=== PATIENT | female | born 1980 | race Caucasian/White ===

== ENCOUNTER → 2020-09-16 12:39 | Outpatient (BNVA) | payer BC, SELFPAY | PROVIDERS: PCP Internal Medicine; Referring Provider Internal Medicine; Visit Provider Physician Assistant | DX: E66.3 Overweight (principal); K90.49 Malabsorption due to intolerance, not elsewhere classified; I10 Essential (primary) hypertension; Z71.3 Dietary counseling and surveillance; Z68.29 Body mass index [BMI] 29.0-29.9, adult; Z98.84 Bariatric surgery status; Z79.899 Other long term (current) drug therapy ==

== ENCOUNTER → 2020-09-26 15:01 | Outpatient (BNVA) | payer BC, SELFPAY | PROVIDERS: PCP Internal Medicine; Visit Provider Surgery | DX: Z76.89 Persons encountering health services in other specified circumstances (principal) ==

== ENCOUNTER → 2020-11-26 15:03 | Outpatient (BNVA) | payer BC, SELFPAY | PROVIDERS: PCP Internal Medicine; Visit Provider Surgery | DX: Z76.89 Persons encountering health services in other specified circumstances (principal) ==

== ENCOUNTER → 2020-12-17 16:12 | Outpatient (BNVA) | payer BC, SELFPAY | PROVIDERS: PCP Internal Medicine; Visit Provider Dietitian, Registered ==

== ENCOUNTER → 2021-02-14 15:40 | Outpatient (BNVA) | payer BC, SELFPAY | PROVIDERS: PCP Internal Medicine; Visit Provider Surgery ==

== ENCOUNTER → 2021-06-10 14:46 | Outpatient (BNVA) | payer BC, SELFPAY | PROVIDERS: PCP Internal Medicine; Referring Provider Internal Medicine; Visit Provider Surgery ==

== ENCOUNTER 2021-07-11 08:16 | Outpatient (REF) | payer BC, SELFPAY ==
[2021-07-11 09:15] LABS: MANUAL DIFF FLAG NO
[2021-07-11 09:18] LABS: Basophils Absolute Auto 0.1 X10*3/uL (0.0-0.2); Basophils Percent Auto 0.9 % (0-2); Eosinophils Percent Auto 0.3 % (0-4); Hematocrit 35.3 % (37-47); Hemoglobin 10.9 g/dl (12.0-16.0); Imm Gran Abs Auto 0.02 X10*3/uL (0.00-0.03); Imm Gran Pct Auto 0.3 % (0.0-0.4); Lymphocytes Absolute Auto 0.7 X10*3/uL (1.2-4.9); Lymphocytes Percent Auto 10.4 % (20-40); Mean Corpuscular HGB Conc 30.9 g/dl (31.0-35.0); Mean Corpuscular Hemoglobin 25.3 pg (27.0-33.0); Mean Corpuscular Volume 81.9 fL (80-98); Mean Platelet Volume 11.1 fL (9.4-12.3); Monocytes Absolute Auto 1.1 X10*3/uL (0.1-1.2); Monocytes Percent Auto 16.8 % (2-11); Neutrophils Absolute Auto 4.6 X10*3/uL (2.0-8.3); Neutrophils Percent Auto 71.3 % (45-73); Platelet Count 261 X10*3/uL (160-400); Red Blood Count 4.31 X10*6/uL (4.20-5.50); Red Cell Distribution Width 14.6 % (11.0-16.0); White Blood Count 6.4 X10*3/uL (4.8-10.8)
[2021-07-11 09:39] LABS: Alanine Aminotransferase 20 U/L (0-31); Albumin Level 3.9 g/dL (3.5-5.0); Alkaline Phosphatase 71 U/L (39-117); Anion Gap 10 (12-20); Aspartate Amino Transferase 19 U/L (5-31); Bilirubin Total 0.7 mg/dL (0.0-1.0); Blood Urea Nitrogen 17 mg/dL (9-16); C Reactive Protein 0.35 mg/dL (< or = 0.50); Calcium 9.3 mg/dL (8.4-10.2); Carbon Dioxide 27 mmol/L (22-29); Chloride 104 mmol/L (96-108); Cholesterol 159 mg/dL; Estimated Glomerular Filt Rate > 60; Glucose Fasting 87 mg/dL (60-99); HDL Cholesterol 72 mg/dL; Iron 30 mcg/dL (30-160); LDL Cholesterol Calculated 77 mg/dl; Percent Iron Saturation 7 % (15-50); Potassium 4.4 mmol/L (3.3-5.1); Sodium 137 mmol/L (135-145); Total Iron Binding Capacity 431 mcg/dL (228-428); Total Protein 6.6 g/dL (6.5-8.0); Triglycerides 52 mg/dL; Unsaturated Iron Binding 401 ug/dL
[2021-07-11 09:59] LABS: Thyroid Stimulating Hormone 0.71 uIU/mL (0.32-4.0); Vitamin D 25-OH Total 29.5 ng/mL (>30)
[2021-07-12 14:59] LABS: Vitamin B12 616 pg/mL (200-900)
[2021-07-15 16:41] LABS: Zinc 57 mcg/dL (60-130)
[2021-07-16 14:41] LABS: Vitamin B1 22 nmol/L (8-30)
[2021-07-16 19:17] LABS: Vitamin A 44 mcg/dL (38-98)
== END 2021-07-11 08:17 | disposition home or self-care (01) ==
LOC: HO.LAB 08:16
PROVIDERS: PCP Internal Medicine; Visit Provider Surgery
DX: Z01.818 Encounter for other preprocedural examination (principal); K91.2 Postsurgical malabsorption, not elsewhere classified; Z90.3 Acquired absence of stomach [part of]
CPT/HCPCS: 36415; 80053; 80061; 82306; 82607; 83540; 84425; 84443; 84590; 84630; 85025; 86140

== ENCOUNTER → 2021-10-03 15:38 | Outpatient (BNVA) | payer BC, SELFPAY | PROVIDERS: PCP Internal Medicine; Visit Provider Physician Assistant Surgical ==

== ENCOUNTER 2021-11-17 14:06 | Outpatient (REF) | payer BC, SELFPAY ==
[2021-11-17 14:25] LABS: MANUAL DIFF FLAG NO
[2021-11-17 15:00] LABS: Basophils Absolute Auto 0.1 X10*3/uL (0.0-0.2); Basophils Percent Auto 0.8 % (0-2); Eosinophils Absolute Auto 0.1 X10*3/uL (0.0-0.4); Eosinophils Percent Auto 0.8 % (0-4); Hematocrit 32.8 % (37.0-47.0); Hemoglobin 9.9 g/dl (12.0-16.0); Imm Gran Abs Auto 0.02 X10*3/uL (0.00-0.03); Imm Gran Pct Auto 0.3 % (0.0-0.4); Lymphocytes Absolute Auto 1.8 X10*3/uL (1.2-4.9); Lymphocytes Percent Auto 24.5 % (20-40); Mean Corpuscular HGB Conc 30.2 g/dl (31.0-35.0); Mean Corpuscular Hemoglobin 23.4 pg (27.0-33.0); Mean Corpuscular Volume 77.5 fL (80.0-98.0); Mean Platelet Volume 11.5 fL (9.4-12.3); Monocytes Absolute Auto 0.8 X10*3/uL (0.1-1.2); Neutrophils Absolute Auto 4.5 x10*3/uL (2.0-8.3); Neutrophils Percent Auto 62.6 % (45-73); Platelet Count 292 X10*3/uL (160-400); Red Blood Count 4.23 X10*6/uL (4.20-5.50); Red Cell Distribution Width 15.4 % (11.0-16.0); White Blood Count 7.3 X10*3/uL (4.8-10.8)
[2021-11-17 15:31] LABS: Anion Gap 12 (12-20); Blood Urea Nitrogen 21 mg/dL (9-16); C Reactive Protein 0.19 mg/dL (< or = 0.50); Calcium 9.1 mg/dL (8.4-10.2); Carbon Dioxide 25 mmol/L (22-29); Chloride 105 mmol/L (96-108); Cholesterol 176 mg/dL; Estimated Glomerular Filt Rate > 60; Glucose Random 94 mg/dL (60-115); HDL Cholesterol 60 mg/dL; Iron 15 mcg/dL (30-160); LDL Cholesterol Calculated 69 mg/dl; Percent Iron Saturation 3 % (15-50); Potassium 4.2 mmol/L (3.3-5.1); Sodium 138 mmol/L (135-145); Total Iron Binding Capacity 449 mcg/dL (228-428); Triglycerides 237 mg/dL; Unsaturated Iron Binding 434 ug/dL
[2021-11-17 15:57] LABS: Folate 13.5 ng/mL (> or = 4.0); Vitamin B12 562 pg/mL (200-900)
[2021-11-17 15:59] LABS: Ferritin 9 ng/mL (10-250); TSH reflex Free T4 0.91 uIU/mL (0.32-4.0); Vitamin D 25-OH Total 36.5 ng/mL (>30)
[2021-11-17 16:12] LABS: Estimated Average Glucose 108 mg/dL; Hemoglobin A1c % 5.4 %
[2021-11-18 11:42] LABS: PTHI 90 pg/mL (14-64)
[2021-11-21 10:06] LABS: Vitamin B1 13 nmol/L (8-30)
[2021-11-21 13:56] LABS: Zinc 55 mcg/dL (60-130)
[2021-11-24 16:22] LABS: Vitamin A 47 mcg/dL (38-98)
== END 2021-11-17 14:07 | disposition home or self-care (01) ==
LOC: HO.LAB 14:06
PROVIDERS: PCP Internal Medicine; Visit Provider Physician Assistant Surgical
DX: E66.3 Overweight (principal); Z98.84 Bariatric surgery status
CPT/HCPCS: 36415; 80048; 80061; 82306; 82607; 82728; 82746; 83036; 83540; 83970; 84425; 84443; 84590; 84630; 85025; 86140

== ENCOUNTER → 2021-11-18 14:36 | Outpatient (BNVA) | payer BC, SELFPAY | PROVIDERS: PCP Internal Medicine; Visit Provider Physician Assistant Surgical ==

== ENCOUNTER → 2022-02-24 14:10 | Outpatient (BNVA) | payer BC, SELFPAY | PROVIDERS: PCP Internal Medicine; Visit Provider Physician Assistant Surgical | DX: Z13.89 Encounter for screening for other disorder (principal) ==

== ENCOUNTER → 2023-02-01 11:07 | Outpatient (BNVA) | payer OTHER, SELFPAY | PROVIDERS: PCP Internal Medicine; Visit Provider Dietitian, Registered | DX: E66.9 Obesity, unspecified (principal) | CPT/HCPCS: 97803 ==

== ENCOUNTER 2023-06-15 15:11 | Outpatient (AMB) | payer OTHER, SELFPAY ==
--- NOTE | 2023-06-15 15:13 | MHC.OFFVISWM ---
Intake VS Expanded 06/15/23 15:14 Height 5 ft 3 in Weight 185 lb BMI 32.8 BP 129/83 Blood Pressure Location Rt brachial Blood Pressure Position Sitting Pulse 65 Pulse Source Pulse Oximeter Temp 98.3 F Temperature Source Temporal Artery Scan Pulse Oximetry 96 Oxygen Delivery Method Room Air Body Fat 73.6 Body Fat Percentage 39.8 Free Fat Mass 111.4 Muscle Mass 105.6 Visceral Mass 9.0 Water Mass 79.6 BMR 1,541 Intake Visit Reasons: (ov) PO LSG 05/15/20 [employer] Swe[employer] Required: No Allergies amlodipine [AMLODIPINE] Allergy (Intermediate, Verified 06/15/23 15:15) PALPITATIONS Amlodipine & Diet Manage Prod Allergy (Unknown, Uncoded 11/18/21 14:45) palpitations avocadoes Allergy (Unknown, Uncoded 11/18/21 14:45) hives cinnamon Allergy (Unknown, Uncoded 11/18/21 14:45) hives olives Allergy (Unknown, Uncoded 11/18/21 14:45) hives wheat (not Celiac) Allergy (Unknown, Uncoded 11/18/21 14:45) hives Medication List - Last Reconciled 06/15/23 by RAFAEL Barahona albuterol sulfate 90 mcg/actuation 2 puffs PO Q4H PRN biotin mcg PO calcium citrate 1,000 mg PO DAILY ferrous sulfate 325 mg PO BID [id number]-FA-vit K 45 mg iron- 800 mcg-120 mcg (Bariatric Multivitamins) caps PO DAILY omalizumab mg subcut Q4W omeprazole 20 mg PO DAILY psyllium husk (Metamucil) 0.4 grams PO DAILY PRN zinc sulfate (Zinc-15) 66 mg PO DAILY HPI HPI Comments History of Present Illness Details This?a?42?yo female who is s/p LSG without hiatal hernia repair on?05/15/[address] Eason. Presents for 3 year post op visit. Weight today is 185 pounds, with a BMI of 32.8. Last seen in the office on 02/24/22 by me and her weight at that time was 176.2 pounds and a BMI of 31.1. She saw JOURDAN Cam on 02/01/23 with a weight of 182 pounds. No complaints of nausea, emesis, abdominal pain or reflux. Reports infrequent but normal bowel movements every 1-2 days and uses stool softeners regularly. 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 Present meal plan includes: not following a meal plan Grazing on protein bars (pure protein) 1 daily 1-1.5 eggs skipping lunch cheese meal-protein and veg 6 oz total ? Exercise routine includes: none Any post op complications: none MILLER: never DM: never HTN: never Hyperlipidemia: never GERD:?0-5 scale ??0 = no symptoms ??1 = symptoms noticeable but not bothersome 2 =symptoms bothersome but not daily ? 3 = symptoms bothersome and daily 4 = symptoms affect daily activities 5 = symptoms are incapacitating, unable to do daily activities ? How bad is the heartburn: 3 ? Heartburn while lying down: 3 ? Heartburn when standing up: 3 ? Heartburn after meals: 3 ? Does heartburn change your diet: 2 ? Does heartburn wake you up from sleep: 0 ? Do you have difficulty swallowin ? Do you have pain with swallowin ? If you take medicine for your reflux, does this affect your daily life: 3 Satisfaction with present condition - satisfied or not satisfied: not satisfied with current weight. FOR[facility]LY [facility], [facility] Medical History Anxiety Asthma Chronic urticaria Hypertension Morbid obesity Obesity (BMI 30-39.9) Overweight (BMI 25.0-29.9) Surgical History H/O wisdom tooth extraction History of bilateral carpal tunnel release History of repair of hiatal hernia Hx of abdominoplasty Hx of breast augmentation S/P laparoscopic sleeve gastrectomy S/P panniculectomy Family History Father No problems noted. Mother Type 2 diabetes mellitus Hypertension Maternal Grandfather Hypertension Hypercholesteremia Maternal Grandmother Hypertension Hyperlipidemia Sister No problems noted. Sister Chronic UTI Kidney stones Son No problems noted. Son No problems noted. Son No problems noted. Daughter No problems noted. Social History Alcohol intake: never Patient Tobacco Use Status: Former Tobacco user Physical Exam Const General: cooperative and no acute distress Orientation/consciousness: patient oriented x3 Resp Effort & Inspection: normal respiratory effort Auscultation: clear to auscultation bilaterally Cardio Rate: regular rate Rhythm: regular rhythm GI Inspection: Yes normal to inspection and Yes incision (well healed) Palpation (GI): Soft to palpation and no masses Neuro General: patient oriented x3 Assessment & Plan Assessment & Plan (1) Obese: Code(s): E66.9 - Obesity, unspecified Plan: follow meal plan from RD from January: 80g protein goal Breakfast protein shake or half cup of oatmeal with fair life milk Snack 1/2 protein bar lunch:? 3-4 oz of protein, 2 oz veg snack: 1/2 protein bar dinner:? 3oz protein, veg Return to the gym she will get yearly labs done return to see RD in a month with the expectation that she will bring her schedule for july and will arrange new recommendations at that time Coding Level of Care Code Est Pt Level 4 (76181) Diagnoses Obese E66.9
[2023-06-15 15:14] VITALS: BP 129/83; PULSE 65; TEMP 36.8; O2SAT 96; BMI 32.8
== END 2023-06-15 15:40 | disposition home or self-care (01) ==
PROVIDERS: PCP Internal Medicine; Visit Provider Physician Assistant Surgical
DX: E66.9 Obesity, unspecified (principal); Z68.32 Body mass index [BMI] 32.0-32.9, adult; Z90.3 Acquired absence of stomach [part of]; Z98.84 Bariatric surgery status
CPT/HCPCS: 99214

== ENCOUNTER → 2023-06-15 15:11 | Outpatient (BNVA) | payer OTHER, SELFPAY | PROVIDERS: PCP Internal Medicine; Visit Provider Physician Assistant Surgical ==

== ENCOUNTER 2023-07-15 11:19 | Outpatient (AMB) | payer OTHER, SELFPAY ==
--- NOTE | 2023-07-15 11:06 | MHC.AMNUTRGE ---
Intake VS Expanded 07/15/23 11:15 Height 5 ft 3 in Weight 185 lb BMI 32.8 Intake Visit Reasons: (VIDEO) PO LSG 05/15/20 Allergies amlodipine [AMLODIPINE] Allergy (Intermediate, Verified 06/15/23 15:15) PALPITATIONS Amlodipine & Diet Manage Prod Allergy (Unknown, Uncoded 11/18/21 14:45) palpitations avocadoes Allergy (Unknown, Uncoded 11/18/21 14:45) hives cinnamon Allergy (Unknown, Uncoded 11/18/21 14:45) hives olives Allergy (Unknown, Uncoded 11/18/21 14:45) hives wheat (not Celiac) Allergy (Unknown, Uncoded 11/18/21 14:45) hives HPI Nutrition Presentation Details LSG with Dr. Marie date of surgery 05/15/2020 Last weight 182# Reason for consult elevated BMI Diet Assmnt Details nothing has changed . Did not implement any changes we talked about last appt in January. 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 Last appt made pt aware tums are not adequate source of calcium Did not get labs ordered from January Had PA appointment in May 2023 Dietary counseling reduction Diagnosis Nutrition problem #1 overweight/obesity As related to (etiology) #1 excess energy intake and physical inactivity As evidenced by (sign/symptom) #1 high BMI Monitoring/Goals Nutrition problem monitoring total energy intake, level of knowledge/skill, total PRO intake, total CHO intake, weight and oral fluids Outcome progress not progressing Learning/Education Readiness to learn fair Stages of change preparation Most Recent Diabetes Results: Cholesterol 176 mg/dL 11/17/21 HDL Cholesterol 60 mg/dL 11/17/21 Triglycerides 237 mg/dL 11/17/21 Creatinine 0.71 mg/dL (0.5-1.4) 11/17/21 Blood Urea Nitrogen 21 mg/dL (9-16) H 11/17/21 Sodium 138 mmol/L (135-145) 11/17/21 Potassium 4.2 mmol/L (3.3-5.1) 11/17/21 Chloride 105 mmol/L (96-108) 11/17/21 Carbon Dioxide 25 mmol/L (22-29) 11/17/21 Calcium 9.1 mg/dL (8.4-10.2) 11/17/21 AST 19 U/L (5-31) 07/11/21 ALT 20 U/L (0-31) 07/11/21 Total Protein 6.6 g/dL (6.5-8.0) 07/11/21 Albumin 3.9 g/dL (3.5-5.0) 07/11/21 [facility] Medical History Anxiety Asthma Chronic urticaria Hypertension Morbid obesity Obesity (BMI 30-39.9) Overweight (BMI 25.0-29.9) Surgical History H/O wisdom tooth extraction History of bilateral carpal tunnel release History of repair of hiatal hernia Hx of abdominoplasty Hx of breast augmentation S/P laparoscopic sleeve gastrectomy S/P panniculectomy Family History Father No problems noted. Mother Type 2 diabetes mellitus Hypertension Maternal Grandfather Hypertension Hypercholesteremia Maternal Grandmother Hypertension Hyperlipidemia Sister No problems noted. Sister Chronic UTI Kidney stones Son No problems noted. Son No problems noted. Son No problems noted. Daughter No problems noted. Social History Alcohol intake: never Patient Tobacco Use Status: Former Tobacco user Assessment & Plan Assessment & Plan (1) Overweight (BMI 25.0-29.9): Code(s): E66.3 - Overweight Patient Instructions: She will go back to her bars and shakes for convenience as she wasn't able to follow a plan with more food in it. Emphasized the importance of getting adequate protein and structured meal times. Will provide patient with abundanceof samples of bariatric fusion. Will switch to over the counter calcium supplement - recommended calcium petites by [employer]. She will follow-up with me 08/27 at 11am. Needs to get her labwork done Telehealth Telehealth Location of provider rendering services: practice address Location of patient: address on file Patient Identification confirmed using: Name, : Yes Telehealth method: video Patient verbally consented to treatment: Yes Patient verbally consented to billing insurance company: Yes Patient informed of any privacy concerns related to visit: Yes Minutes spent on Phone/Video with Pt.: 30 Coding Level of Care Code Nutr Indiv Subseq (32321) Diagnoses Overweight (BMI 25.0-29.9) E66.3 Time Spent (min) 30
[2023-07-15 11:15] VITALS: BMI 32.8
== END 2023-07-15 11:19 | disposition home or self-care (01) ==
LOC: HO.HBS 11:19
PROVIDERS: PCP Internal Medicine; Visit Provider Dietitian, Registered
DX: E66.3 Overweight (principal)

== ENCOUNTER → 2023-07-15 11:19 | Outpatient (BNVA) | payer OTHER, SELFPAY | PROVIDERS: PCP Internal Medicine; Visit Provider Dietitian, Registered | DX: E66.3 Overweight (principal); Z68.32 Body mass index [BMI] 32.0-32.9, adult; Z71.3 Dietary counseling and surveillance | CPT/HCPCS: 97803 ==

== ENCOUNTER 2023-08-27 11:24 | Outpatient (AMB) | payer OTHER, SELFPAY ==
--- NOTE | 2023-08-27 11:15 | MHC.AMNUTRGE ---
Intake Intake Visit Reasons: (VIDEO) PO LSG 05/15/20 Allergies amlodipine [AMLODIPINE] Allergy (Intermediate, Verified 06/15/23 15:15) PALPITATIONS Amlodipine & Diet Manage Prod Allergy (Unknown, Uncoded 11/18/21 14:45) palpitations avocadoes Allergy (Unknown, Uncoded 11/18/21 14:45) hives cinnamon Allergy (Unknown, Uncoded 11/18/21 14:45) hives olives Allergy (Unknown, Uncoded 11/18/21 14:45) hives wheat (not Celiac) Allergy (Unknown, Uncoded 11/18/21 14:45) hives Do you need a note to return to daycare/school/sports/work: No HPI Nutrition Presentation Details LSG with Dr. Marie date of surgery 05/15/2020 weight at 4 MO PO 162# weight at 1 year PO 158# weight at 1 years PO 185# Pt reports she has not checked her weight since last appointment Reason for consult elevated BMI Diet Assmnt Details Patient reports she is using the bars and shakes but is not consistent with any eating schedule. Last several appointments, patient has struggled to implement anything discussed/recommended. 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 Last appt made pt aware tums are not adequate source of calcium Did not get labs ordered from January Had PA appointment in May 2023 Dietary counseling reduction Diagnosis Nutrition problem #1 overweight/obesity As related to (etiology) #1 excess energy intake and physical inactivity As evidenced by (sign/symptom) #1 high BMI Monitoring/Goals Nutrition problem monitoring total energy intake, level of knowledge/skill, total PRO intake, total CHO intake, weight and oral fluids Outcome progress not progressing Learning/Education Readiness to learn fair Stages of change preparation Most Recent Diabetes Results: Cholesterol 176 mg/dL 11/17/21 HDL Cholesterol 60 mg/dL 11/17/21 Triglycerides 237 mg/dL 11/17/21 Creatinine 0.71 mg/dL (0.5-1.4) 11/17/21 Blood Urea Nitrogen 21 mg/dL (9-16) H 11/17/21 Sodium 138 mmol/L (135-145) 11/17/21 Potassium 4.2 mmol/L (3.3-5.1) 11/17/21 Chloride 105 mmol/L (96-108) 11/17/21 Carbon Dioxide 25 mmol/L (22-29) 11/17/21 Calcium 9.1 mg/dL (8.4-10.2) 11/17/21 FORMERLY [facility] Medical History Anxiety Asthma Chronic urticaria Hypertension Morbid obesity Obesity (BMI 30-39.9) Overweight (BMI 25.0-29.9) Surgical History H/O wisdom tooth extraction History of bilateral carpal tunnel release History of repair of hiatal hernia Hx of abdominoplasty Hx of breast augmentation S/P laparoscopic sleeve gastrectomy S/P panniculectomy Family History Father No problems noted. Mother Type 2 diabetes mellitus Hypertension Maternal Grandfather Hypertension Hypercholesteremia Maternal Grandmother Hypertension Hyperlipidemia Sister No problems noted. Sister Chronic UTI Kidney stones Son No problems noted. Son No problems noted. Son No problems noted. Daughter No problems noted. Social History Alcohol intake: never Patient Tobacco Use Status: Former Tobacco user Assessment & Plan Assessment & Plan (1) Overweight (BMI 25.0-29.9): Code(s): E66.3 - Overweight Patient Instructions: Has not implemented any nutrition recommendations from previous appointments. She acknowledges she always has excuses, and while valid, are hindering any progress. We did discuss this and explained the importance of making herself a priority. suggested being prepared, using bars/shakes as backups as they are convenient, meal prepping/planning, and keeping to a consistent eating window of 8-10 hours as her schedule varies significantly. She will follow-up with me 10/20 at 11am Telehealth Telehealth Location of provider rendering services: practice address Location of patient: address on file Patient Identification confirmed using: Name, : Yes Telehealth method: video Patient verbally consented to treatment: Yes Patient verbally consented to billing insurance company: Yes Patient informed of any privacy concerns related to visit: Yes Minutes spent on Phone/Video with Pt.: 15 Coding Level of Care Code Nutr Indiv Subseq ([id number]) Diagnoses Overweight (BMI 25.0-29.9) E66.3 Time Spent (min) 15
== END 2023-08-27 11:31 | disposition home or self-care (01) ==
LOC: HO.HBS 11:24
PROVIDERS: PCP Internal Medicine; Visit Provider Dietitian, Registered
DX: E66.3 Overweight (principal)

== ENCOUNTER → 2023-08-27 11:24 | Outpatient (BNVA) | payer OTHER, SELFPAY | PROVIDERS: PCP Internal Medicine; Visit Provider Dietitian, Registered | DX: E66.3 Overweight (principal); Z71.3 Dietary counseling and surveillance | CPT/HCPCS: 97803 ==